=== PATIENT | male | born 2000 | race Caucasian/White ===

== ENCOUNTER 2022-10-10 10:11 | Outpatient (CLI) | payer OTHER, SELFPAY ==
[2022-10-12 12:15] LABS: Cholesterol* 164 mg/dL (90-199)
[2022-10-12 12:16] LABS: HDL Cholesterol* 51 mg/dL (>=40); LDL Cholesterol Calculated 102 mg/dL (<100); Triglycerides* 56 mg/dL (40-149)
== END 2022-10-10 10:12 | disposition home or self-care (01) ==
LOC: LKVREF 10:12
PROVIDERS: Visit Provider Family Medicine
DX: Z00.00 Encounter for general adult medical examination without abnormal findings (principal); Z13.6 Encounter for screening for cardiovascular disorders
CPT/HCPCS: 80061